=== PATIENT | female | born 1980 | race Caucasian/White ===

== ENCOUNTER 2018-05-24 10:08 | Observation (INO) ==
[~2018-05-24 10:08] MED LIST: LIDOCAINE W/ SODIUM BICARB 0.5 ML SYR SUBD ONE; Nasal Sanitizer POPSWAB ampule 3 AMP (Nozin) PREOP DOSE ENOS SCH; ceFAZolin Inj 2gm (Premix) 2 GM/50 ML BAG IV ONE
[2018-05-24] MEDS ORDERED: Vancomycin Inj 1gm vial ONE (10:28)
[2018-05-24] MEDS ORDERED: LIDOCAINE W/ SODIUM BICARB 0.5 ML SYR ONE (10:28)
[2018-05-24] MEDS ORDERED: Lactated Ringers 1,000 ML PRIMARY IV ONE ×3 (10:28→18:42)
[2018-05-24] MEDS ORDERED: Sodium Chloride 0.9% 250 ML ONE (10:28)
[2018-05-24] MEDS ORDERED: ceFAZolin Inj 2gm (Premix) 2 GM/50 ML BAG IV ONE (10:28)
[2018-05-24 10:34] LABS: BILIRUBIN,URINE NEGATIVE (NEG); CLARITY,URINE CLEAR (CLEAR); COLOR,URINE YELLOW (Y); GLUCOSE, URINE (UA) NEGATIVE (NEG); OCCULT BLOOD,URINE NEGATIVE (NEG); PH,URINE 5.5 (5.0-8.5); PROTEIN,URINE NEGATIVE (NEG); UROBILINOGEN,URINE 0.2 EU/dL (0.2)
[2018-05-24 11:33] LABS: BASOPHILS # (AUTO) 0.02 10*3/UL; BASOPHILS % (AUTO) 0.2 % (0-1); EOSINOPHILS # (AUTO) 0.08 10*3/UL; Hematocrit [HCT] 45.3 % (37.0-47.0); Hemoglobin [HGB] 15.5 g/dL (12.0-16.0); LYMPHOCYTES # (AUTO) 2.62 10*3/uL; MEAN CORPUSCULAR HEMOGLOBIN 28.8 PG (27-31); MEAN CORPUSCULAR HGB CONC 34.2 g/dL (33-37); MEAN CORPUSCULAR VOLUME 84.2 FL (81-99); MEAN PLATELET VOLUME 9.4 FL (7.4-12.2); MONOCYTES # (AUTO) 0.54 10*3/UL (0.3-0.8); MONOCYTES % (AUTO) 6.5 % (5-15); NEUTROPHILS # (AUTO) 5.03 10*3/UL; NEUTROPHILS % (AUTO) 60.2 % (50-80); PLATELET MORPHOLOGY COMMENT NORMAL MORPHOLOGY (NORM); RBC MORPHOLOGY COMMENT NORMAL MORPHOLOGY (NORM); RED BLOOD COUNT 5.38 10^6/uL (4.20-5.40); WBC MORPHOLOGY COMMENT NORMAL MORPHOLOGY (NORM)
[2018-05-24] MEDS: Lactated Ringers 1,000 ML PRIMARY IV ONE ×2 (11:41→19:19)
[2018-05-24 11:43] LABS: BLOOD UREA NITROGEN 16 mg/dL (7-22); BUN/CREATININE RATIO 26.66 (6-20)
[2018-05-24 11:44] LABS: URINE SAMPLE TYPE CLEAN CATCH URINE
[2018-05-24] MEDS ORDERED: IPRATROPIUM/ALBUTEROL SULFATE 3 ML NEB NEB ONE (11:55)
[2018-05-24] MEDS ORDERED: MIDAZOLAM 5 MG/1 ML ONE (11:56)
[2018-05-24] MEDS ORDERED: LIDOCAINE MPF 2% - 5 ML (20 MG/1 ML) ONE (11:56)
[2018-05-24] MEDS ORDERED: Propofol 1,000 MG/100 ML VIAL IV ONE ×3 (11:57→17:44)
[2018-05-24] MEDS ORDERED: fentaNYL Inj 250 MCG/5 ML VIAL ONE (11:57)
[2018-05-24] MEDS ORDERED: KETOROLAC 15 MG/1 ML VIAL ONE (11:57)
[2018-05-24] MEDS ORDERED: DEXAMETHASONE PF 10 MG/1 ML VIAL ONE (11:57)
[2018-05-24] MEDS ORDERED: ROCURONIUM 10 MG/1 ML - 5 ML VIAL IVP ONE ×2 (11:57→15:33)
[2018-05-24] MEDS ORDERED: FAMOTIDINE 20 MG/2 ML VIAL IVP ONE (11:58)
[2018-05-24] MEDS ORDERED: REMIFENTANIL HCL 2 MG VIAL IV ONE (12:10)
[2018-05-24] MEDS ORDERED: HYDROmorphone 2 MG/1 ML ONE (12:11)
[2018-05-24] MEDS ORDERED: LORazepam 2 MG/1 ML VIAL ONE (12:52)
[2018-05-24] MEDS ORDERED: Sodium Chloride 0.9% vial 10 ML ONE (14:30)
[2018-05-24] MEDS ORDERED: THROMBIN (BOVINE) 20,000 UNIT KIT TOPICAL ONE (14:31)
[2018-05-24] MEDS ORDERED: BACITRACIN 50,000 UNIT VIAL IRRIG ONE (14:31)
[2018-05-24] MEDS ORDERED: SUCCINYLCHOLINE CHLORIDE 20 MG/1 ML - 10 ML ONE ×2 (14:35→18:01)
[2018-05-24] MEDS ORDERED: Acetaminophen 1000mg Inj 1,000 MG/100 ML VIAL IV ONE (14:38)
--- NOTE | 2018-05-24 18:09 | OPNOTE.NEU ---
Operative Note Operative Note: Neurosurgical Services Operative Note [facility] [id number] Afua Solorio Date of Surgery: 05/24/18 Preoperative Diagnosis: CERVICAL DISC DISORDER AT C5-6, 6-7 Post-Op Diagnosis Codes: Same Procedure(s): 1. Anterior Cervical Decompression; 49285, 83583 2. Anterior Cervical Arthrodesis; 02238, 77125 3. Anterior Cervical Plating; 66896 4. Allograft Structural Graft; 60293 X2 5. Preparation of bone graft: A. Local autograft, same incision; B. Broadbent of morselized iliac crest autograft, separate incision; C. Broadbent of bone marrow aspirate, iliac crest; D. Addition of osteopromotive calcium compound; allograft DBM; 6. Intraoperative microsurgical technique 7. Intraoperative fluoroscopic navigation, [id number] 8. Intraoperative continuous neural monitoring, motor and sensory Surgeon(s): Sebastián Sanchez MD Aerial Photograph Interpreter(s): TRUONG Chong Anesthesia: General Anesthesia Anesthesiologist / OPERATER: Michelle Ha CRNA Brief Findings: Herniated disc at both levels resulting in neural compression. Procedure(s): We discussed the procedure, risks, advantages and disadvantages of surgical intervention at length. To prevent further pain, disability and potential progression of neurologic deficits, the patient would like to proceed with surgery. Introduction: After obtaining informed consent, careful consideration of the pre-operative studies and evaluation, the patient asked to proceed with surgery. The patient was taken to the operating room, given an anesthetic, positioned and prepared for surgery. All pressure points were meticulously padded and great care was taken to insure the patient was appropriately positioned to avoid any abnormal strain on the extremities or any other area. The operative region was prepared with iodine solution and isolated aseptically using routine sterile draping. Position / Approach: The patient was placed in the supine position such that a anterior approach could be taken to the neck. EXPOSURE: A right transverse neck incision at the abnormal level which was confirmed using fluoroscopy was made through skin, subcutaneous fat and the platysma muscle. Using sharp and blunt dissection, the anterior spine was exposed medial to the sternocleidomastoid muscle and carotid sheath and the longus coli muscles were carefully reflected off the vertebrae using electrocautery and a deep self-retaining retractor was place beneath them. Thereafter, distraction pins were place within the vertebral bodies above and below the abnormal levels. The inner space was then distracted to improve exp osure during the decompression. DECOMPRESSION: While distracting the innerspaces, a radical discectomy was performed at C5-6. After removal of the disk using curettes considerable posterior osteophytosis was encountered particularly on the left and a large disc herniation was identified. The osteophyte was removed using a high speed drill equipped with a stefan bur, microsurgical technique and the intraoperative microscope for visualization. There was clear evidence of compression upon the exiting nerve root and spinal cord. The posterior longitudinal ligament was taken down and wide foraminotomies were fashioned on both sides. The epidural space was explored extensively confirming no further compression upon the neural elements. Identical findings were encountered at the C6-7 level. The level was decompressed similarly. ARTHRODESIS: After the decompression, the height of the inner space was measured and an allograft bone graft was selected which would fit snuggly within the space. The graft was loaded with bone graft which was prepared as described. The graft was placed using the fluoroscope to assess the graft position so that it could be countersunk appropriately. Allograft structural grafts were placed at C5-6 and C6-7. Closure: [] Estimated Blood Loss: [] Operative hemorrhage? Yes, expected amount. Drains: [] Condition: Good Complications: None Specimen: [] Authenticated by Dr. Sanchez On Production CPT: [] CPT SUMMARY: []
[2018-05-24] MEDS ORDERED: LIDOCAINE W/ SODIUM BICARB 0.5 ML SYR SUBD PRN (19:05)
[2018-05-24] MEDS ORDERED: ONDANSETRON 4 MG/2 ML VIAL IVP PRN ×2 (19:05→19:38)
[2018-05-24] MEDS ORDERED: fentaNYL Inj 100 MCG/2 ML VIAL IVP PRN (19:05)
--- NOTE | 2018-05-24 19:14 | CRNA.PROGR ---
Anesthesia Time - Procedure/Recovery Time Start Date: 05/24/18 Anesthesia : Time In: 15:13 Anesthesia : Time Out: 18:50 - Other Weight: 78.925 kg Height: 5 ft 5 in Body Mass Index (BMI): 28.9 Physical Status: P2 Anesthesia Type: General Anesthesia : ET
[2018-05-24] MEDS ORDERED: Ondansetron ODT Tab 4 MG TAB PO PRN (19:38)
[2018-05-24] MEDS ORDERED: CYCLOBENZAPRINE 10 MG TABLET PO PRN (19:38)
[2018-05-24] MEDS ORDERED: HYDROcodone-APAP 5 MG -325 MG TABLET PO PRN (19:38)
[2018-05-24] MEDS ORDERED: Zolpidem Tab 5 MG TAB PO PRN (19:38)
[2018-05-24] MEDS ORDERED: ACETAMINOPHEN 325 MG TABLET PO PRN (19:38)
[2018-05-24] MEDS ORDERED: DIAZEPAM 5 MG TABLET PO PRN (19:38)
[2018-05-24] MEDS ORDERED: MORPHINE SULFATE 2 MG/1 ML IVP PRN (19:38)
[2018-05-24] MEDS ORDERED: LABETALOL 20 MG/4 ML (5 MG/1 ML) SYRINGE IVP PRN (19:38)
[2018-05-24] MEDS ORDERED: DOCUSATE 100 MG CAPSULE PO PRN (19:38)
[2018-05-24] MEDS ORDERED: HYDROmorphone 2 MG/1 ML IVP ONE (19:38)
[2018-05-24] MEDS ORDERED: D5-1/2NS + 20mEq KCL 1,000 ML PRIMARY IV SCH (19:38)
[2018-05-24] MEDS ORDERED: HYDRALAZINE 20 MG/1 ML IVP PRN (19:38)
[2018-05-24] MEDS ORDERED: DIAZEPAM 10 MG/2 ML (5 MG/1 ML) CARPUJECT IVP PRN (19:38)
[2018-05-24] MEDS: Sodium Chloride 0.9% 1,000 ML PRIMARY IV SCH (20:51)
--- NOTE | 2018-05-24 22:18 | DI ---
XR C-SPINE 2-3 VW 05/24/2018 6:14 PM History: [facility] [place] DI ^Document post op alignment Comparison: MRI C-spine 05/06/2017. Findings: Portable AP and lateral views of the cervical spine are submitted. The C7/T1 relationship i s not captured. The patient is status post anterior C5-C7 plate and screw fixation with interbody spa cer placement. There is no evidence of hardware fracture or loosening. A drain projects over the prev ertebral soft tissues which are mildly thickened, an expected finding in the immediate postoperative timeframe. There is no acute fracture or spondylolisthesis. Review of alignment shows straightening of the usama l cervical lordosis. The vertebral bodies are of normal height. Degenerative disc disease has not sig nificantly changed compared to prior imaging. No cervical ribs are seen. Visualized portions of the l cindi apices, paranasal sinuses, and mastoid air cells are clear. Impression: Status post anterior C5-7 fusion without evidence of hardware failure or acute osseous ab normality. There is straightening of the normal cervical lordosis which can be positional or secondar y to muscle spasm induced by pain.
[2018-05-25] MEDS: ceFAZolin Inj 1 GM in Sodium Chloride 0.9% 100 ML IV SCH ×2 (00:16→07:44)
--- NOTE | 2018-05-25 08:13 | NEURO.PROG ---
Subjective Post Op Day: 1 Pain Management: PO Lutz Catheter: No Flatus: Yes Diet: Regular Ambulating: Yes Date of Service: 05/25/18 Time of Service: 08:08 Interval History: 38 y/o female now post op day one and reports that she is doing well. Her cervical pre surgical pain is drastically better and now report mostly post surgical discomfort. Her right upper extremity radicular pain and her left posterior shoulder pain is gone. She is very happy with the results of her surgery. Surgical drain with no measurable fluid this morning. She has no difficulty swallowing. Objective : Data - Labs CBC and BMP: 05/24/18 11:25 05/24/18 11:25 - Vital Signs Vital Signs and I&O: Vital Signs - Last Taken Temperature 97.9 F 05/25/18 07:18 Pulse Rate 82 05/25/18 07:18 Respiratory Rate 18 05/25/18 07:18 Blood Pressure 132/77 05/25/18 07:18 Pulse Ox 96 05/25/18 07:18 Intake and Output (24hr x 4 totals) 05/23/18 05/24/18 05/25/18 05/26/18 05:59 05:59 05:59 05:59 Intake Total 2312 / 2312 400 / 400 Output Total 2600 / 2600 750 / 750 Balance -288 / -288 -350 / -350 Objective : Exam - General General Appearance: No Acute Distress - Head Head Exam: Normal Inspection - Eye Eye Exam: Normal Appearance, EOMI - ENT ENT Exam: Normal Exam - Neck Neck Exam: No Tenderness Additional Neck Exam Details: Right anterior cervical surgical wound clean, dry. No measurable fluid in surgical drain. - Respiratory Respiratory Exam: Breathing Non Labored - Cardiovascular Cardiovascular Exam: RRR - GI/Abdominal GI/Abdominal Exam: Non Tender - Rectal Rectal Exam: Deferred - External Exam: Deferred Exam: Deferred - Extremities Extremities Exam: Full ROM Additional Extremities Exam Details: She reports improved and increased right shoulder active range of motion with no radicular tenderness. - Back Back Exam: Full ROM - Neurological Neurological Exam: Alert, Oriented x 3 Additional Neurological Exam Details: She is up and ambulating with no difficulty this morning. - Psychiatric Psychiatric Exam: Normal Affect, Normal Mood - Integumentary Integumentary Exam: Normal Color, Warm, Dry Additional Integumentary Exam Details: Right anterior surgical wound intact, dry, surgical drain in. - Central Line Examination Central Line Present on Admission: No Assessment and Plan - Patient Problems (1) Status post cervical spinal fusion Current Visit: Yes Status: Acute Code(s): Z98.1 - Arthrodesis status - Assessment / Plan Additional Assessment/Plan Details: post op day one s/p C5-6, C6-7 anterior cervical discectomy and fusion. She is doing well. Remove surgical drain. Discussed surgical wound care and follow up plan. Discharge home this morning.
[2018-05-25] MEDS: Sodium Chloride 0.9% 1,000 ML PRIMARY IV SCH (08:57)
--- NOTE | 2018-05-25 14:39 | PTI REPORT ---
Thank you for the referral of Afua Solorio. She was seen on 05/25/18 for an inpatient evaluation status post cervical fusion. SUBJECTIVE: The patient is a 38-year-old female who underwent a cervical fusion yesterday. The patient states that she is doing well. She complains that the back of her head hurts and she is stiff. She reports a pain level of 2/10 on the verbal analog scale (0=no pain, 10=worst pain). The patient states that she is able to lift her right upper extremity further than she was prior to surgery and is not having as much pain down her right upper extremity. The patient lives in [place] with a couple of her children. 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 The patient states that she has four stairs into her house and then everything is on one level. The patient states that she has had issues with her right lower extremity giving out and she does fall at times. She states that most of the time when she is home, her children are around to help her and there are only about two hours each day that she will be home by herself and she does have a service dog for that time. Prior to her surgery, the patient was having weakness and pain in her right upper extremity. PAST MEDICAL HISTORY: Past medical history can be found in the patient's medical record. OBJECTIVE FINDINGS: General observations: The patient was alert and oriented to setting upon PT arrival. The patient was laying in bed with head of bed elevated. She did have a drain in place and an IV. Nursing staff did come in to remove the drain and the IV prior to us starting therapy. Bed mobility: The patient was able to move from supine to seated edge of bed position with stand by assistance x1 for safety. The patient demonstrated good seated balance and denied any lightheadedness or dizziness. The patient was instructed on cervical precautions in a seated position including moving her cervical spine but avoiding end ranges and her lifting precaution. Transfers: The patient was able to move from a seated to standing position with stand by assist x1 for safety. The patient demonstrated good initial standing balance and denied any lightheadedness or dizziness. Ambulation: The patient was able to ambulate 150 feet around the nurse's station with stand by assist x1 for safety. She was able to ascend and descend one flight of stairs with use of hand rail on the right safely and independently. ASSESSMENT: The patient has good rehab potential. Problem List: Patient is post op cervical fusion Short-Term Goals: To be met by discharge from inpatient: Patient will be able to perform all transfers safely and independently. Patient will be able to transfer from bed to stand safely and independently. Patient will be able to ascend and descend at least 5 stairs safely and independently. Long-Term Goals: To be met following discharge from inpatient: Patient may be seen by outpatient physical therapy for post op cervical fusion if deemed necessary by her surgeon. TREATMENT PLAN: Patient has met all goals for therapy and we plan to discharge the patient from PT services. INITIAL TREATMENT: Treatment today consisted of the initial evaluation followed by one unit of functional activity. The patient was brought back in her room where she wished to sit up in the chair. The patient was left in chair with call light within reach and chair alarm set. Nursing staff was notified that the patient has met her goals for therapy and is safe for discharge. STEPHENIE
--- NOTE | 2018-05-25 15:36 | OTI REPORT ---
Thank you for the referral of Afua Solorio. She was seen on 05/25/18 for an occupational therapy inpatient evaluation status post cervical fusion. SUBJECTIVE: The patient is a 38-year-old female who is being seen secondary to a C5-C7 fusion. The patient is from [place]. She states that prior to admission she was having a lot of difficulty with her right arm as well as falling secondary to her leg. She reports the doctors are not really sure what is going on with her leg but they are further assessing that. She states her neck was causing a lot of pain and numbness and functional difficulties throughout her upper extremities, especially on the right side. PAST MEDICAL HISTORY: Past medical history can be found in the patient's medical record. OBJECTIVE FINDINGS: Bed mobility: The patient was able to come from supine to sit independently. Activities of daily living: While sitting edge of bed the patient was able to dress herself without flexing neck more than 50%. She was able to don socks and pants. The patient states she has a higher toilet seat in her house. She was issued a internet marketing consultant as she will be at home by herself and she is a little bit afraid to get up and walk by herself for the couple of hours that she will be home alone. She stated the internet marketing consultant would be very handy at home for safety. Range of motion: The patient was able to regain her right upper extremity range of motion after the surgery and stated that the surgery pain was a lot different and better than the pain that she had prior to surgery. ASSESSMENT: The patient will be seen for initial evaluation only. The patient was issued a internet marketing consultant for safety at home. The patient was instructed in neck precautions. Short-Term Goals: To be met by discharge from inpatient: Patient will follow neck precautions with all simple ADLs. Long-Term Goals: To be met following discharge from inpatient: Patient will return home demonstrating safety and independence with all ADLs and functional activities. TREATMENT PLAN: Patient will be discharged from OT services at this time secondary to meeting all goals. INITIAL TREATMENT: Treatment today consisted of the initial evaluation activities only. STEPHENIE
== END 2018-05-25 09:41 | disposition home or self-care (01) ==
LOC: OR 10:08 → MED/SURG 10:08
PROVIDERS: ADMIT Neurological Surgery; ATTEND Neurological Surgery